=== PATIENT | female | born 2000 | race Caucasian/White ===

== ENCOUNTER 2020-01-10 23:04 | Emergency (ER) | payer OTHER ==
[~2020-01-10] VITALS: Ht 165.1 cm; Wt 79.8 kg
[2020-01-10] MEDS ORDERED: IRON325 PO (23:38)
[2020-01-11 00:24] VITALS: BP 92/59
== END 2020-01-11 00:25 | disposition home or self-care (01) ==
LOC: ER 23:04
DX: O26.893 Other specified pregnancy related conditions, third trimester (principal); R10.9 Unspecified abdominal pain; M54.5 Low back pain; Z3A.29 29 weeks gestation of pregnancy; Z79.899 Other long term (current) drug therapy